=== PATIENT | female | born 1935 | race Two or more races ===

== ENCOUNTER → 2017-08-21 | Emergency (ER) | payer OTHER ==
[~2017-08-21] MED LIST: COZAAR25 MG; FOSAMAX5 MG; IBUPROFEN800 MG PO; METFORMIN HCL500 M2; NORVASC5 MG; SEPTRA DS TABLE1 TAB PO; SYNTHROID50 MCG; XANAX XR0.5 MG; ZANTAC300 MG PO; ZITHROMAX TRI-500 MG PO
== END | disposition left against medical advice (07) ==
LOC: ER 15:38
DX: Z53.20 Procedure and treatment not carried out because of patient's decision for unspecified reasons (principal)

== ENCOUNTER 2017-09-25 14:22 | Outpatient (CLI) | payer OTHER | END 2017-09-25 17:00 | disposition home or self-care (01) | LOC: TOM 14:22 | DX: S06.5X9A Traumatic subdural hemorrhage with loss of consciousness of unspecified duration, initial encounter (principal) ==

== ENCOUNTER 2017-11-10 10:31 | Outpatient (CLI) | payer OTHER | END 2017-11-10 10:35 | disposition home or self-care (01) | LOC: NUCLEAR 10:31 | DX: M81.0 Age-related osteoporosis without current pathological fracture (principal) ==

== ENCOUNTER 2017-11-10 13:43 | Outpatient (CLI) | payer OTHER | END 2017-11-10 13:45 | disposition home or self-care (01) | LOC: SONOGRAMA 13:43 | DX: E04.2 Nontoxic multinodular goiter (principal) ==

== ENCOUNTER 2017-12-02 13:04 | Outpatient (CLI) | payer OTHER | END 2017-12-02 13:18 | disposition home or self-care (01) | LOC: SONOGRAMA 13:04 | DX: R10.84 Generalized abdominal pain (principal); N18.3 Chronic kidney disease, stage 3 (moderate); R31.9 Hematuria, unspecified ==

== ENCOUNTER 2018-01-12 15:44 | Outpatient (CLI) | payer OTHER | END 2018-01-12 16:35 | disposition home or self-care (01) | LOC: RAD 15:44 | DX: I50.32 Chronic diastolic (congestive) heart failure (principal) ==

== ENCOUNTER 2019-03-21 13:11 | Outpatient (CLI) | payer OTHER | END 2019-03-21 13:15 | disposition home or self-care (01) | LOC: SONOGRAMA 13:11 | DX: N39.0 Urinary tract infection, site not specified (principal); R31.0 Gross hematuria ==

== ENCOUNTER 2021-08-22 12:20 | Outpatient (CLI) | payer OTHER | END 2021-08-22 12:21 | disposition home or self-care (01) | LOC: TOM 12:20 | PROVIDERS: ATTEND Neuromusculoskeletal Medicine & OMM | DX: G25.0 Essential tremor (principal) ==

== ENCOUNTER 2022-07-30 15:18 | Outpatient (CLI) | payer OTHER | END 2022-07-30 15:20 | disposition home or self-care (01) | LOC: TOM 15:18 | PROVIDERS: ATTEND Internal Medicine Pulmonary Disease | DX: R91.1 Solitary pulmonary nodule (principal); R06.02 Shortness of breath; E04.0 Nontoxic diffuse goiter; E03.9 Hypothyroidism, unspecified ==